=== PATIENT | male | born 1990 | race Asian ===

== ENCOUNTER 2016-12-12 16:25 | Emergency (ER) | payer OTHER ==
[2016-12-12 16:36] VITALS: BP 121/63; PULSE 94; RESP 18; TEMP 100.2; O2SAT 94
--- NOTE | 2016-12-12 16:53 | EDPHY ---
General - History Smoking Status: Never smoked Time Seen by Provider: 12/12/16 16:43 Narrative: CHIEF COMPLAINT: Flu-like symptoms HISTORY OF PRESENT ILLNESS: sudden onset of fever, chills, body aches, sore throat, cough, headache. Symptoms started on Monday. They have been constant ever since. Minimal improvement with NyQuil. No chest pain. No vomiting but minimal nausea. No abdominal pain. No flank pain. No urinary complaints. No alleviating factors. Worse with any kind of movement or exertion. No other associated complaints or modifying factors. No medical problems. REVIEW OF SYSTEMS: Ten systems reviewed and are negative unless otherwise noted in the HPI PERTINENT MEDICAL HISTORY: None EXAMINATION General Appearance: Alert, no distress Head: normocephalic, atraumatic Eyes: Pupils equal and round, no conjunctival pallor or injection ENT, Mouth: Mucous membranes moist. Uvula midline. There is posterior erythema and exudate. No tonsillar abscess. No asymmetry. No abnormality of the floor of the mouth . EACs and TMs are clear. Neck: Normal inspection, supple, non-tender. Anterior cervical lymphadenopathy. . No nuchal rigidity or meningismus. Respiratory: Lungs are clear to auscultation . No wheezing, rhonchi or crackles. Cardiovascular: Regular rate and rhythm . No murmur. Pulses intact distally. Gastrointestinal: Abdomen is soft and nontender . No splenomegaly. Back: non-tender, no bony abnormalities Neurological: A&O, nonfocal, normal gait Strength symmetric in all limbs. Skin: Warm and dry, no rash Extremities: Nontender, no pedal edema Psychiatric: Mood and affect normal DIFFERENTIAL DIAGNOSES: Including but not limited to Influenza, viral illness, strep pharyngitis, viral pharyngitis, mononucleosis MDM: 5:00 p.m. sore throat, cough, body aches, chills. Symptoms are consistent with influenza , as are his examination findings. He does have some tonsillar exudates wall obtain a strep test. Also obtained a flu test. He is hemodynamically stable with very mildly elevated temperature. 5:50 p.m. rapid strep test negative. Influenza swab is positive for flu B. His vital signs are acceptable for this. He is in no acute distress. He is not hypoxic. Discharged home with routine instructions for this. Additionally I will write him for Tamiflu as he is within the 48 hour time frame. We discussed the nature of this drug and what to expect and what not to expect. He is discharged home with a school note and return to the emergency department precautions. I have answered all his questions and he is in stable condition. SUPERVISION: This patient was independently evaluated without the aide of supervising physician. (Alhaji Solorio) Discussion: The patient was evaluated and managed by the Physician Hearing Examiner/ Nurse Practitioner. My co-signature indicates that I have reviewed this chart and I agree with the findings and plan of care as documented. I am the secondary supervising physician. (Rafaela Hernandez) - Objective Vital Signs: Initial Vital Signs Temperature (C) 37.9 C 12/12/16 16:33 Heart Rate 94 12/12/16 16:33 Respiratory Rate 18 12/12/16 16:33 Blood Pressure 121/63 H 12/12/16 16:33 O2 Sat (%) 94 12/12/16 16:33 O2 Delivery Mode Room Air Allergies/Adverse Reactions: No Known Allergies Allergy (Unverified 07/17/15 20:59) Home Medications: Medication Instructions Recorded Acetaminophen/Codeine 300/30Mg 1 each PO Q6 PRN #15 tab 12/12/16 [Tylenol #3 (*)] Oseltamivir Phosphate [Tamiflu 75 75 mg PO BID #10 cap 12/12/16 mg (*)] Laboratory Results: 12/12/16 12/12/16 12/12/16 Unknown 17:00 17:00 Influenza Typ A,B (DFA) POSITIVE FOR FLU B H (NEGATIVE) Group A Strep Screen NEGATIVE (NEGATIVE) Group A Strep DNA NEGATIVE (NEGATIVE) Medications Given: Discontinued Medications Ibuprofen (Motrin) 600 mg PO EDNOW ONE Stop: 12/12/16 16:57 Last Admin: 12/12/16 17:09 Dose: 600 mg Departure - Departure Disposition: Home, Routine, Self-Care Clinical Impression: Influenza B Condition: Good Instructions: Influenza (ED) Additional Instructions: Rest, increase fluids, ibuprofen every 8 hours as needed, Tylenol 3 as prescribed as needed. Hand hygiene and mask the next 1-2 weeks. Return here for worsening symptoms or chest pain. Follow-up with primary care physician or on campus at [email or web address]. Referrals: NONE *PRIMARY CARE P,. [Primary Care Provider] - As per Instructions Gianni Mendez MD [Medical Doctor] - As per Instructions [facility] [Clinic] - As per Instructions Stand Alone Forms: School Excuse Prescriptions: Acetaminophen/Codeine 300/30Mg [Tylenol #3 (*)] 1 each PO Q6 PRN #15 tab PRN Reason: Pain, Mild Oseltamivir Phosphate [Tamiflu 75 mg (*)] 75 mg PO BID #10 cap
[2016-12-12] MEDS ORDERED: IBUPROFEN 600 MG TAB PO ONE (16:56)
== END 2016-12-12 18:10 | disposition home or self-care (01) ==
DX: J10.1 Influenza due to other identified influenza virus with other respiratory manifestations (principal)

== ENCOUNTER → 2017-11-03 | Outpatient (CLI) | payer OTHER ==
[~2017-11-03] MED LIST: GADOBUTROL 10 ML VIAL IVP ONE
== END ==
LOC: FIMAGING 14:07
PROVIDERS: ATTEND Physician Assistant Medical
DX: R90.82 White matter disease, unspecified (principal)
CPT/HCPCS: A9585